=== PATIENT | female | born 1980 | race Caucasian/White ===

== ENCOUNTER 2020-10-27 18:30 | Inpatient (IN) ==
[2020-10-27] MEDS ORDERED: Naloxone 0.4 MG/ML INJ IVP PRN (20:17)
[2020-10-27] MEDS ORDERED: Ondansetron 4 MG/2 ML VIAL IVP PRN (20:17)
[2020-10-27] MEDS ORDERED: Acetaminophen 325 MG TABLET PO PRN (20:17)
[2020-10-27] MEDS ORDERED: Potassium Chloride Elixir 20 MEQ/15 ML UDC PO ONE (20:18)
[2020-10-27] MEDS: Benzonatate 100 MG CAPSULE PO PRN (23:03)
[2020-10-28 02:56] LABS: Basophils % 0.2 %; Hematocrit 35.9 % (35.3-44.9); Hemoglobin 11.4 g/dL (11.5-15.4); Immature Granulocytes % 0.5 % (0-4); Lymphocytes # 0.5 K/mcL (0.6-4.6); Lymphocytes % 12.2 %; Mean Corpuscular HGB Conc 31.8 g/dL (31.6-35.5); Mean Corpuscular Hemoglobin 25.3 pg (28.0-33.3); Mean Corpuscular Volume 79.8 fL (83.0-100.0); Mean Platelet Volume 12.4 fL (9.4-12.4); Monocytes # 0.1 K/mcL (0.0-1.3); Monocytes % 2.1 %; Neutrophils # 3.7 K/mcL (1.6-8.9); Platelet Count 152 K/mcL (140-400); Red Cell Distribution Width 15.5 % (11.5-14.5); White Blood Count 4.3 K/mcL (4.3-11.1)
[2020-10-28 03:05] LABS: INR 1.3; Prothrombin Time 14.6 Seconds (9.4-12.1)
[2020-10-28 03:21] LABS: % Iron Saturation 4 % (15-50); Alanine Aminotransferase 17 Units/L (7-52); Albumin 3.5 g/dL (3.5-5.7); Alkaline Phosphatase 47 Units/L (34-104); Aspartate Amino Transferase 16 Units/L (13-39); BUN/Creatinine Ratio 21 (6-26); Bilirubin,Total 0.4 mg/dL (0.3-1.0); Blood Urea Nitrogen 13 mg/dL (6-20); C-Reactive Protein 254 mg/L (Less than 10); Calcium 8.5 mg/dL (8.6-10.3); Carbon Dioxide 25 mEq/L (23-29); Chloride 105 mEq/L (98-107); Globulin 3.4 g/dL (2.4-3.5); Glucose 163 mg/dL (70-105); Iron 11 mcg/dL (50-170); Lactate Dehydrogenase 174 Units/L (140-271); Magnesium 2.1 mg/dL (1.6-2.6); Osmolality,Calculated 294 (280-300); Phosphorous 2.8 mg/dL (2.7-4.5); Potassium 3.4 mEq/L (3.5-5.1); Sodium 140 mEq/L (136-145); Total Protein 6.9 g/dL (6.4-8.9); Transferrin 209 mg/dL (203-362); eGFR For African Americans > 60 (> 60); eGFR For Non-African Americans > 60 (> 60)
[2020-10-28 03:31] LABS: Folate 7.9 ng/mL (3.0-16.0)
[2020-10-28 03:37] LABS: Ferritin 101 ng/mL (10-120)
[2020-10-28] MEDS ORDERED: Pantoprazole 40 MG VIAL IVP SCH (06:00)
[2020-10-28] MEDS: Dexamethasone Sodium Phos/PF 10 MG/ML VIAL IVP SCH (08:17)
[2020-10-28] MEDS: Benzonatate 100 MG CAPSULE PO PRN ×3 (08:26→22:53)
[2020-10-29] MEDS ORDERED: Aspirin Enteric Coated 81 MG Tablet PO SCH (09:00)
[2020-10-29] MEDS: Benzonatate 100 MG CAPSULE PO PRN (09:01)
[2020-10-29] MEDS: Dexamethasone Sodium Phos/PF 10 MG/ML VIAL IVP SCH (09:01)
[2020-10-29 11:04] VITALS: BP 130/76
== END 2020-10-29 16:23 | disposition home or self-care (01) | DRG 177 ==
LOC: 2NENU → SUATTDRO 19:55 → 2NENU 20:15
PROVIDERS: ADMIT Internal Medicine; ATTEND Internal Medicine